=== PATIENT | female | born 1950 | race Native Hawaiian/Other Pacific Islander ===

== ENCOUNTER 2019-09-16 15:46 | Emergency (ER) | payer OTHER ==
[~2019-09-16] VITALS: Ht 170.2 cm; Wt 68.0 kg
[2019-09-16 15:46] VITALS: TEMP 97.9
[2019-09-16 16:30] VITALS: BP 188/96
[2019-09-16 17:27] LABS: PLATELET COUNT 392 K/uL (152-353)
[2019-09-16 17:30] LABS: POTASSIUM 5.4 mmol/L (3.6-5.2); SODIUM 136 mmol/L (136-145)
== END 2019-09-16 19:37 | disposition home or self-care (01) ==
LOC: ED 15:46
PROVIDERS: Family Medicine
DX: L03.116 Cellulitis of left lower limb (principal)
CPT/HCPCS: 36600; 80053; 82550; 82553; 82805; 83605; 83880; 84484; 85027; 93005; 96372; 99283; J0696